=== PATIENT | female | born 1975 | race Caucasian/White ===

== ENCOUNTER 2019-08-25 18:05 | Emergency (ER) | payer SELFPAY ==
[~2019-08-25] VITALS: Ht 157.5 cm; Wt 101.2 kg
[2019-08-25 18:15] VITALS: BP 161/73; Ht 157.5 cm; Wt 101.2 kg
== END 2019-08-25 19:40 | disposition home or self-care (01) ==
LOC: ED 18:05
DX: S61.012A Laceration without foreign body of left thumb without damage to nail, initial encounter (principal); W45.8XXA Other foreign body or object entering through skin, initial encounter; Y93.89 Activity, other specified; Y92.89 Other specified places as the place of occurrence of the external cause; Y99.8 Other external cause status
CPT/HCPCS: 90715